=== PATIENT | male | born 1960 | race Caucasian/White ===

== ENCOUNTER 2018-10-20 06:46 | Day surgery (SDC) | payer BC ==
[2018-10-20] MEDS ORDERED: PROPOFOL INJ 200 MG/20 ML VIAL IV ONE (07:04)
[2018-10-20] MEDS ORDERED: FENTANYL CITRATE INJ/PF 100 MCG/2 ML AMPUL ONE (07:22)
[2018-10-20] MEDS ORDERED: ONDANSETRON HCL INJ/PF 4 MG/2 ML SDV ONE (07:22)
[2018-10-20] MEDS ORDERED: DIPHENHYDRAMINE HCL 50 MG/ML VIAL ONE (07:22)
[2018-10-20] MEDS ORDERED: NALOXONE HCL INJ/PF 0.4 MG/1 ML SDV ONE (07:23)
[2018-10-20] MEDS ORDERED: FLUMAZENIL INJ 0.5 MG/5 ML VIAL ONE (07:23)
[2018-10-20] MEDS ORDERED: GLUCAGON,HUMAN RECOMB 1 MG INJ ONE (07:23)
[2018-10-20] MEDS ORDERED: EPINEPHRINE INJ 1 MG/10 ML DISP.SYRIN ONE (07:23)
[2018-10-20] MEDS: MIDAZOLAM 2 MG/2 ML INJ ONE ×2 (07:39→07:45)
--- NOTE | 2018-10-20 08:22 | Discharge Summary ---
Discharge Summary (SDC) - Discharge Final Diagnosis: Normal colon; family history of colon carcinoma Date of Surgery: 10/20/18 Discharge Date: 10/20/18 Condition: Good Treatment or Instructions: [facility] [address] [address] POST ENDOSCOPY DISCHARGE INSTRUCTIONS 1. Diet: Start clear liquids that a regular diet as tolerated. 2. Resume all preoperative medications. All oral anticoagulants and aspirins can be resumed 24 hours after procedure. 3. If a polypectomy was performed some bleeding per rectum may occur. This should stop within 3 days. If not, please contact the office. 4. If you had a colonoscopy you may experience some bloating and delayed return of normal bowel function for several days, your regular bowel movement pattern should resume within a week. 5. Please contact [facility] at to make an sylwia ointment with Dr. Jordan for 1 to 3 weeks following procedure. 6. If you have any questions or concerns regarding your care,treatment plan or follow up, please contact our office. 7. Per clinical guidelines we recommend you undergo a repeat colonoscopy in 6-8 years. Discharge Diet: As Tolerated Discharge Activity: Activity As Tolerated Home Care Assistance: None Needed Report the Following to Your Physician Immediately: Shortness of Breath, Increase in Pain, Fever over 101 Degrees
--- NOTE | 2018-10-20 08:25 | Operative Report ---
Operative Report DATE OF SURGERY: 10/20/18 PREOPERATIVE DIAGNOSIS: 1. Family history of colon carcinoma. 2. Screening f or colorectal carcinoma POSTOPERATIVE DIAGNOSIS: Normal colonoscopy to cecum OPERATION: Total colonoscopy with photodocumentation SURGEON: SHAMA FRASER ANESTHESIA: Moderate Sedation TISSUE REMOVED OR ALTERED: None COMPLICATIONS: None ESTIMATED BLOOD LOSS: None INTRAOPERATIVE FINDINGS: See below PROCEDURE: Obtaining informed consent the patient was taken from the preoperative holding area to the main endoscopy suite where monitoring devices were attached to the patient. Plan and surgical timeout were conducted The patient was placed in the left lateral decubitus position with knees to chest. A perianal examination was performed. There was no visible or palpable anorectal pathology. Sphincter tone was felt to be normal. The posterior surface of the prostate gland was slightly enlarged The flexible adult colonoscope was advanced through the anal rectal canal, all the way to the cecum. Visualization of the cecum was achieved and the ileocecal valve, and transillumination of the anterior abdominal wall. This was very good study on a reasonably well-prepped bowel; there was a residual amount of green particulate slurry and stool which required irrigation The colonoscope was withdrawn slowly and methodically checked and the mucosa carefully. There was no evidence of tumor, stricture, bleeding or polyp. There were 1-2 diverticulosis of the sigmoid colon. The scope was slowly withdrawn through the anal rectal canal. Complete visualization of the rectum was achieved with photodocumentation. The scope was withdrawn to the patient's anus. The patient tolerated the procedure well and was taken to the recovery area in stable condition. Per screening guidelines, patient be an appropriate candidate for a follow-up colonoscopy in 6 to 8 years given his strong family history of colon cancer.
[2018-10-20 09:44] VITALS: BP 128/80
[2018-10-20] MEDS ORDERED: MORPHINE SULFATE 10 MG/ML INJ IV PRN (17:48)
[2018-10-20] MEDS ORDERED: FENTANYL CITRATE INJ/PF 100 MCG/2 ML AMPUL IV PRN ×3 (17:48)
[2018-10-20] MEDS ORDERED: PROMETHAZINE HCL INJ 25 MG/1 ML VIAL IV PRN ×2 (17:48)
[2018-10-20] MEDS ORDERED: MEPERIDINE HCL/PF INJ 25 MG/1 ML DISP.SYRIN IV PRN (17:48)
[2018-10-20] MEDS ORDERED: DIPHENHYDRAMINE HCL 50 MG/ML VIAL IV PRN (17:48)
== END 2018-10-20 09:05 | disposition home or self-care (01) ==
LOC: END 06:46
PROVIDERS: ATTEND Surgery
DX: K59.00 Constipation, unspecified (principal); Z86.010 Personal history of colon polyps; Z80.0 Family history of malignant neoplasm of digestive organs; Z79.82 Long term (current) use of aspirin; Z01.818 Encounter for other preprocedural examination
CPT/HCPCS: 45378; J2250; J3010; J0171; J1200; J1610; J2310; J2405; J2704; J3490